=== PATIENT | male | born 1945 | race Caucasian/White ===

== ENCOUNTER 2020-01-07 03:34 | Emergency (ER) | payer MEDICARE ==
[~2020-01-07] VITALS: Ht 182.9 cm; Wt 83.9 kg
[2020-01-07 03:39] VITALS: BP 186/86
--- NOTE | 2020-01-07 03:45 | NUR ---
PT CAME INTO THE ED C/O R GROIN PAIN AND SWELLING X 1 WEEK. PAIN WORSENS WHEN WALKING. PT AAOX4, RR EVEN AND UNLABORED ON RA W/ NAD NOTED. PT CONNECTED TO THE MONITOR AND POX. AWAITING FOR MD PHAN
--- NOTE | 2020-01-07 03:50 | NUR ---
URINE SENT TO LAB
[2020-01-07 04:09] LABS: APPEARANCE,URINE Clear (CLEAR); BILIRUBIN,URINE Negative (NEGATIVE); BLOOD, URINE Moderate Ery/uL (NEGATIVE); COLOR,URINE Yellow (YELLOW); KETONES,URINE Negative (NEGATIVE); LEUKOCYTE ESTERASE ,URINE Negative (NEGATIVE); NITRITE, URINE Negative (NEGATIVE); PROTEIN,URINE Negative (NEGATIVE); UGLUCOSE Negative (NEGATIVE); UROBILINOGEN,URINE 0.2 EU/dL (0.2)
[2020-01-07] MEDS ORDERED: ACYCLOVIR 200 MG CAPSULE ONE (04:27)
[2020-01-07] MEDS ORDERED: HYDROMORPHONE 1 MG/1 ML DISP.SYRIN ONE (04:27)
[2020-01-07] MEDS ORDERED: ONDANSETRON 4 MG TAB.RAPDIS ONE (04:27)
[2020-01-07] MEDS ORDERED: ACYCLOVIR 200 MG CAPSULE PO ONE (04:30)
[2020-01-07] MEDS ORDERED: ONDANSETRON 4 MG TAB.RAPDIS SL ONE (04:30)
[2020-01-07] MEDS ORDERED: HYDROMORPHONE 1 MG/1 ML DISP.SYRIN IM ONE (04:30)
[2020-01-07 04:32] LABS: BACTERIA,URINE Few /HPF (None Seen); RBC,URINE 51-80 /HPF (0-2); SQUAMOUS EPITHELIAL CELL,UR Rare /HPF (None Seen)
--- NOTE | 2020-01-07 06:02 | NUR ---
Patient discharged to home in stable condition. Written and verbal after care instructions given. Patient verbalizes understanding of instruction.
== END 2020-01-07 06:02 | disposition home or self-care (01) ==
LOC: ER 03:39
DX: B02.9 Zoster without complications (principal); R10.31 Right lower quadrant pain; I10 Essential (primary) hypertension; Z98.890 Other specified postprocedural states; Z85.51 Personal history of malignant neoplasm of bladder
CPT/HCPCS: 74176; 81001; 96372; 99284; J1170; Q0162; 81000-TC

== ENCOUNTER 2020-01-07 16:30 | Emergency (ER) | payer MEDICARE ==
[~2020-01-07] VITALS: Ht 182.9 cm; Wt 83.9 kg
--- NOTE | 2020-01-07 17:19 | NUR ---
Patient discharged to home in stable condition. Written and verbal after care instructions given. Patient verbalizes understanding of instruction.
[2020-01-07 17:20] VITALS: BP 141/78
== END 2020-01-07 17:20 | disposition home or self-care (01) ==
LOC: ER 16:30
DX: T40.605A Adverse effect of unspecified narcotics, initial encounter (principal); I10 Essential (primary) hypertension; Z98.890 Other specified postprocedural states; Z85.51 Personal history of malignant neoplasm of bladder; Z60.2 Problems related to living alone; Y92.89 Other specified places as the place of occurrence of the external cause

== ENCOUNTER 2020-01-08 02:56 | Emergency (ER) | payer MEDICARE ==
[~2020-01-08] VITALS: Ht 172.7 cm; Wt 77.1 kg
[2020-01-08 03:15] VITALS: BP 154/88
[2020-01-08] MEDS ORDERED: ONDANSETRON 4 MG TAB.RAPDIS ONE (03:16)
[2020-01-08] MEDS ORDERED: ONDANSETRON 4 MG TAB.RAPDIS SL ONE (03:30)
== END 2020-01-08 03:27 | disposition home or self-care (01) ==
LOC: ER 03:02
DX: R11.0 Nausea (principal); T40.605A Adverse effect of unspecified narcotics, initial encounter; I10 Essential (primary) hypertension; Z98.890 Other specified postprocedural states; Z60.2 Problems related to living alone; Y92.89 Other specified places as the place of occurrence of the external cause
CPT/HCPCS: 99283; Q0162

== ENCOUNTER 2020-11-01 06:09 | Emergency (ER) | payer MEDICARE ==
[~2020-11-01] VITALS: Ht 182.9 cm; Wt 83.9 kg
[2020-11-01 06:10] VITALS: BP 174/101
--- NOTE | 2020-11-01 06:35 | NUR ---
COVID SWAB OBTAINED AND SENT TO LAB
--- NOTE | 2020-11-01 06:37 | NUR ---
Patient discharged to home in stable condition. Written and verbal after care instructions given. Patient verbalizes understanding of instruction.
--- NOTE | 2020-11-02 23:56 | NUR ---
LAB CALLED REGARDING NEGATIVE COVID RESULT.
== END 2020-11-01 06:37 | disposition home or self-care (01) ==
LOC: ER 06:10
DX: Z20.828 Contact with and (suspected) exposure to other viral communicable diseases (principal); Z85.51 Personal history of malignant neoplasm of bladder; I10 Essential (primary) hypertension
CPT/HCPCS: C9803; U0003

== ENCOUNTER 2025-02-22 08:40 | Emergency (ER) | payer OTHER ==
[~2025-02-22] VITALS: Ht 172.7 cm; Wt 77.1 kg
[2025-02-22] MEDS: KETOROLAC TROMETHAMINE 15 MG/ML VIAL IV ONE (09:00)
[2025-02-22] MEDS ORDERED: KETOROLAC TROMETHAMINE 15 MG/ML VIAL ONE (09:00)
[2025-02-22] MEDS ORDERED: CYCLOBENZAPRINE 10 MG TABLET ONE (09:00)
[2025-02-22] MEDS: CYCLOBENZAPRINE 10 MG TABLET PO ONE (09:11)
[2025-02-22 09:14] LABS: BASOPHILS % (AUTO) 0.4 % (0.0-2.0); EOSINOPHILS # (AUTO) 0.1 K/uL (0.0-0.7); EOSINOPHILS % (AUTO) 0.9 % (0.0-6.0); HEMATOCRIT 42 % (39-51); HEMOGLOBIN 14.3 g/dL (13.5-17.5); LYMPHOCYTES # (AUTO) 3.1 K/uL (0.8-4.8); LYMPHOCYTES % (AUTO) 40.2 % (20.0-44.0); MEAN CORPUSCULAR HEMOGLOBIN 31 PG (26.0-33.0); MEAN CORPUSCULAR HGB CONC 34 g/dl (31.0-36.0); MEAN CORPUSCULAR VOLUME 91 fL (80-96); MONOCYTES # (AUTO) 0.5 K/uL (0.1-1.30); MONOCYTES % (AUTO) 6.6 % (2.0-12.0); NEUTROPHILS % (AUTO) 51.9 % (43.0-81.0); PLATELET COUNT (AUTO) 255 K/uL (150-450); RED CELL DISTRIBUTION WIDTH 13.4 % (11.5-15.0); WHITE BLOOD COUNT (AUTO) 7.8 K/uL (4.3-11.0)
[2025-02-22 09:29] LABS: CALCIUM, SERUM 9.8 mg/dL (8.5-10.1); CARBON DIOXIDE 31 mmol/L (21-32); CHLORIDE 102 mmol/L (98-107); CREATININE 1.2 mg/dL (0.6-1.3); GLUCOSE 128 mg/dL (74-106); POTASSIUM 3.5 mmol/L (3.5-5.1); SODIUM SERUM 141 mmol/L (136-145); UREA NITROGEN, BLOOD 26 mg/dL (7-18)
[2025-02-22 09:32] LABS: ALANINE AMINOTRANSFERASE 13 U/L (12-78); ALKALINE PHOSPHATASE 59 U/L (46-116); ASPARTATE AMINOTRANSFERASE 17 U/L (15-37); BILIRUBIN,DIRECT 0.1 mg/dL (0.0-0.2); BILIRUBIN,TOTAL 0.6 mg/dL (0.2-1.0); LIPASE 19 U/L (16-77)
[2025-02-22 09:54] LABS: APPEARANCE,URINE CLEAR (CLEAR); BILIRUBIN,URINE NEGATIVE (NEGATIVE); BLOOD, URINE 2+ Ery/uL (NEGATIVE); COLOR,URINE YELLOW (YELLOW); KETONES,URINE NEGATIVE (NEGATIVE); LEUKOCYTE ESTERASE ,URINE NEGATIVE (NEGATIVE); NITRITE, URINE NEGATIVE (NEGATIVE); PROTEIN,URINE NEGATIVE (NEGATIVE); UGLUCOSE NEGATIVE (NEGATIVE); UROBILINOGEN,URINE 0.2 EU/dL (0.2)
[2025-02-22] MEDS: oxyCODONE/APAP (5/325 MG) 1 UDTAB TABLET PO ONE (10:00)
[2025-02-22] MEDS ORDERED: oxyCODONE/APAP (5/325 MG) 1 UDTAB TABLET ONE (10:10)
[2025-02-22 10:11] LABS: RBC,URINE 21-50 /HPF (0-2)
[2025-02-22 10:12] LABS: ADD URINE CULTURE YES; BACTERIA,URINE 2+ /HPF (None Seen); WBC,URINE 0-2 /HPF (0-3)
[2025-02-22] MEDS ORDERED: CYCL5TAB PO (10:12)
[2025-02-22] MEDS ORDERED: KETO10TA2 PO (10:12)
[2025-02-22] MEDS ORDERED: MORPHINE SULFATE INJ 2 MG/ML DISP.SYRIN ONE (10:59)
[2025-02-22] MEDS: MORPHINE SULFATE INJ 2 MG/ML DISP.SYRIN IM ONE (11:03)
[2025-02-22 15:00] VITALS: BP 170/78; TEMP 98.8; O2SAT 98
== END 2025-02-22 15:17 ==
LOC: ER 08:56
DX: N32.89 Other specified disorders of bladder (principal); I10 Essential (primary) hypertension; Z85.46 Personal history of malignant neoplasm of prostate; Z85.51 Personal history of malignant neoplasm of bladder
CPT/HCPCS: 99285; 74176; 96374; 93005; 85025; 80048; 87086; 83690; 80076; 81001; 36415; 84484; 96372; J1885; J2270